=== PATIENT | female | born 1940 ===

== ENCOUNTER 2017-08-09 09:47 | Emergency (ER) | payer OTHER, MEDICAID ==
[2017-08-09 09:54] VITALS: TEMP 97.8
--- NOTE | 2017-08-09 10:55 | C.PDOC ---
History Of Present Illness 77 y/o F c PMHx thyroid disease p/w dizziness x 4 days. Describes dizziness as a spinning sensation that is intermittent and brought upon head movements, associated with N/V. Denies trauma, numbness, weakness, slurred speech, facial droop, abdominal pain, chest pain, dyspnea. Time Seen by Provider: 08/09/17 10:17 Chief Complaint (Nursing): Dizziness/Lightheaded Past Medical History Vital Signs: Last Vital Signs Temp 97.8 F 08/09/17 09:54 Pulse 81 08/09/17 09:54 Resp 20 08/09/17 09:54 BP 138/83 08/09/17 09:54 Pulse Ox 99 08/09/17 10:55 - Medical History PMH: Hypothyroidism Family History: States: No Known Family Hx - Social History Hx Alcohol Use: No Hx Substance Use: No Review Of Systems Except As Marked, All Systems Reviewed And Found Negative. Constitutional: Negative for: Fever Cardiovascular: Negative for: Chest Pain Physical Exam - Physical Exam Additional Physical Exam Comments: Gen: NAD Head: NC/AT Eyes: PERRL ENT: TMs normal b/l Neck: No midline tenderness Chest: No tenderness CV: Regular rate Lungs: CTA b/l Abd: Soft, NT Back: No CVA tenderness Skin: No rash Extremities: No edema Neuro: Alert, CN II to XII intact, motor 5/5 x 4, sensation to light touch intact, FTN/HTS normal, able to ambulate, reproducible symptoms with Mauri Hallpike. ED Course And Treatment O2 Sat by Pulse Oximetry: 99 Medical Decision Making Medical Decision Making: Signs and symptoms consistent with BPPV. Will treat with Meclizine and reassess. Patient states she feels much better after meclizine. Will prescribe, f/u ENT, return to ED for intractible vertigo, intractible vomiting, or any other neurological signs. Disposition - Disposition Referrals: Lance Haider MD [Staff Provider] - Disposition: HOME/ ROUTINE Disposition Time: 11:53 Condition: STABLE Additional Instructions: You should follow up with an ENT doctor. Prescriptions: Meclizine [Antivert] 25 mg PO TID PRN #20 tab PRN Reason: Dizziness Instructions: Vertigo (a Type of Dizziness) Forms: [employer] (Turkmen) - Clinical Impression Clinical Impression: BPPV (benign paroxysmal positional vertigo)
[2017-08-09 12:08] VITALS: BP 111/71; PULSE 76; RESP 18; O2SAT 97
== END 2017-08-09 12:13 | disposition home or self-care (01) ==
LOC: C.ER 09:47
DX: H81.10 Benign paroxysmal vertigo, unspecified ear (principal)